=== PATIENT | female | born 1965 | race Caucasian/White ===

== ENCOUNTER → 2016-07-23 | Outpatient (CLI) | payer OTHER ==
[~2016-07-23] MED LIST: MULT-506 PO
--- NOTE | 2016-07-24 14:16 | MAMMOGRAPHY REPORT ---
BILATERAL DIGITAL SCREENING MAMMOGRAM TOMOSYNTHESIS WITH CAD: 07/23/2016 CLINICAL HISTORY: Routine screening. Patient has no complaints. TECHNIQUE: Breast tomosynthesis in addition to standard 2D mammography was performed. Current study was also evaluated with a Computer Aided Detection (CAD) system. COMPARISON: No prior exams were available for comparison. BREAST COMPOSITION: The tissue of both breasts is heterogeneously dense, which may obscure small ma sses. FINDINGS: There are 2 possible faint groups of calcifications in the right upper outer quadrant, fo r which spot magnification views are recommended for further evaluation. The remainder of both breas ts demonstrate no suspicious masses, calcifications, or areas of architectural distortion. Other bi lateral benign-appearing calcifications are noted. IMPRESSION: ACR BI-RADS CATEGORY 0: INCOMPLETE EVALUATION: NEED ADDITIONAL IMAGING EVALUATION Right upper outer quadrant calcifications, for which additional imaging evaluation is recommended gi faye no priors to document stability. The patient will be called to schedule an appointment. Approximately 10% of breast cancers are not detected with mammography. A negative mammographic repor t should not delay biopsy if a clinically suggestive mass is present. Kathy Barros M.D. ah/:07/24/2016 07:59:25 Rn Production: Shakir Watkins RT(R)(M), [facility] letter sent: Addl Imaging 0 BI-RADS Code: ACR BI-RADS Category 0: Incomplete Evaluation: Need Additional Imaging Evaluation
== END | disposition home or self-care (01) ==
LOC: C.MAMM 09:33
PROVIDERS: ATTEND Obstetrics & Gynecology
DX: Z12.31 Encounter for screening mammogram for malignant neoplasm of breast (principal); R92.1 Mammographic calcification found on diagnostic imaging of breast

== ENCOUNTER → 2016-08-04 | Outpatient (CLI) | payer OTHER ==
--- NOTE | 2016-08-04 14:37 | MAMMOGRAPHY REPORT ---
UNILATERAL RIGHT DIGITAL DIAGNOSTIC MAMMOGRAM: 08/04/2016 CLINICAL HISTORY: 51-year-old woman called back from screening mammography for 2 possible clusters o f microcalcifications in the right breast. TECHNIQUE: Spot magnification right CC and ML views were obtained. COMPARISON: Comparison is made to exam dated: 07/23/2016 mammogram - [facility]. BREAST COMPOSITION: The tissue of the right breast is heterogeneously dense, which may obscure smal l masses. FINDINGS: There are 2 small faint clusters of punctate and amorphous microcalcifications in the upp er outer anterior and upper outer middle one third of the right breast. The anterior cluster is the dominant cluster measuring 3 mm, and the cluster in the middle one third of the breast measures 1.2 mm. They are similar in morphology. Given that no prior mammograms are available to demonstrate s tability they are indeterminate and biopsy of the larger 3 mm cluster is recommended, with tentative follow-up of the smaller similar appearing cluster in 6 months, pending benign pathology results. No obvious associated mass or architectural distortion. IMPRESSION: ACR BI-RADS CATEGORY 4B: INTERMEDIATE SUSPICION FOR MALIGNANCY 1. Stereotactic guided right breast biopsy is recommended for a 3 mm cluster of punctate and amorph ous microcalcifications in the upper outer anterior breast. 2. Pending benign pathology results, this similar appearing yet smaller cluster in the upper outer middle one third of the right breast can be followed in short intervals. These results and recommendations were discussed with the patient at the time of the exam. She tent atively scheduled the biopsy prior to leaving our department. Approximately 10% of breast cancers are not detected with mammography. A negative mammographic repor t should not delay biopsy if a clinically suggestive mass is present. Naomie Lehman M.D. ay/:08/04/2016 10:18:44 Yarn Man: Briseyda GUPTA(R)(M), [facility] letter sent: Abnormal 4/5 BI-RADS Code: ACR BI-RADS Category 4B: Intermediate Suspicion For Malignancy
== END | disposition home or self-care (01) ==
LOC: C.MAMM 09:38
PROVIDERS: ATTEND Obstetrics & Gynecology
DX: R92.0 Mammographic microcalcification found on diagnostic imaging of breast (principal)

== ENCOUNTER → 2016-08-20 | Outpatient (CLI) | payer OTHER ==
--- NOTE | 2016-08-20 09:19 | Discharge Instructions ---
Discharge Instructions Procedure Procedure Date: Aug 20, 2016. Reason for visit: Right Calcs. Discharge Discharge Date: Aug 20, 2016. Discharge Diagnosis: status post breast biopsy Instructions Activity Recommendations: Additional Limitations (see below) Return to School/Work: no limitations Recommended Home Diet: No Limitations Provider Instructions: ACTIVITY RECOMMENDATIONS: * No lifting, pushing, pulling or exercising the affected side for three days. RETURN TO SCHOOL/WORK: * You may return to work/school after the procedure, but do not perform any strenuous activities for 24 to 48 hours. MEDICATIONS: * Tylenol (two 325 mg) every four to six hours if needed for mild pain (if not allergic to Tylenol). DIET: * Resume previous diet. SPECIAL CARE INSTRUCTIONS: * Keep biopsy site dry for 24 hours. May shower after 24 hours, but do not soak (bathe) incision. * May remove Tegaderm (plastic patch) tomorrow AFTER showering. * Leave the steri-strips on for one week. Allow the steri-strips to fall off by themselves. If not off after one week, you may remove them. You may place a Bandaid crosswise over the strips, if desired. * Apply ice 10 minutes on and 10 minutes off as needed. * Wear a bra at bedtime to sleep more comfortably for 2-3 days. * Your referring physician should have the results after approximately 5 to 7 business days. * Call for unusual bleeding, fever, drainage, etc or if you have any questions call during normal business hours or after hours call Dr Barros, [phone]. FOLLOW UP VISIT: Follow-up with Referring Physician as scheduled. Allergies Coded Allergies: Phenytoin (Verified Allergy, 08/10/09) Uncoded Allergies: DILANTIN (RASH) (Allergy, Unknown, 08/18/02) N (Allergy, Unknown, 08/18/02) NKFA (Allergy, Unknown, 08/18/02) Maia Parra Recommendations: Call your doctor if: * Temperature above 101 degrees * Pain not relieved by pain medicine ordered * There is increased drainage or redness from any incision * You have any unanswered questions or concerns. Your Doctors Instructions noted above were prepared by provider Kathy Barros. Patient Signature Section: Patient Instructions Signature Page Emperatriz Gonzalez Patient (or Guardian) Signature/Date: I have read and understand the instructions given to me by my caregivers. Caregiver/RN/Doctor Signature/Date: The above-named patient and/or guardian has received patient instructions on this date. + Original Patient Signature Page (only) stays with chart. Please make copy for patient.
--- NOTE | 2016-08-20 12:26 | MAMMOGRAPHY REPORT ---
THIS REPORT HAS BEEN AMENDED. STEREOTACTIC GUIDED BIOPSY RIGHT BREAST: 08/20/2016 CLINICAL HISTORY: Indeterminate calcifications in the right upper outer quadrant. PATIENT CONSENT: The procedure, risks, benefits, and alternatives of stereotactic biopsy with clip p lacement were discussed with the patient, and verbal and written consent was obtained. A timeout wa s performed immediately prior to the procedure. PROCEDURE DESCRIPTION: With stereotactic guidance, aseptic technique, and lidocaine as a local anest hetic (1% lidocaine to anesthetize the skin and 1% lidocaine with epinephrine to anesthetize the yajaira per tissues), the area of concern in the right upper outer quadrant was sampled multiple times with a 9-gauge vacuum-assisted biopsy needle (TNC). The path of approach was lateral. The speci men radiograph demonstrates calcifications to be present in the samples. A metallic marker clip was placed at the biopsy site. This was confirmed on postprocedure mammograms. Direct pressure was ap plied at the biopsy site and hemostasis was readily achieved. The patient tolerated the procedure w ithout complication. She was given wound care instructions. COMPARISON: Comparison is made to exams dated: 08/04/2016 mammogram and 07/23/2016 mammogram - [facility]. IMPRESSION: STEREOTACTIC GUIDED BIOPSY Stereotactic biopsy of indeterminate calcifications in the right upper outer quadrant, with clip aaron cement. The patient will receive pathology results from her referring physician. Pending benign pa thology results, recommend follow-up diagnostic mammograms to reevaluate the other smaller similar-a ppearing cluster in the right breast. Kathy Barros M.D. ah/:08/20/2016 09:22:35 Attending Technologist: Rosamaria GUPTA(R)(M), [facility] Chart Snatcher: Shakir HAYESR)(M), [facility] AMENDMENT: 08/28/2016 Kathy Barros M.D. The pathology results from right breast stereotactic biopsy were reviewed on 08/28/2016. The patholo gy shows fibrocystic change and columnar cell hyperplasia with associated calcifications. Findings are benign and concordant with the imaging appearance. Recommend follow-up diagnostic mammograms of the right breast in 6 months to reevaluate the other similar appearing cluster of calcifications in the right breast.
--- NOTE | 2016-08-20 12:26 | MAMMOGRAPHY REPORT ---
UNILATERAL RIGHT DIGITAL DIAGNOSTIC MAMMOGRAM: 08/20/2016 CLINICAL HISTORY: Status post stereotactic biopsy of right breast calcifications. TECHNIQUE: Postprocedural right CC and LM views were obtained. COMPARISON: Comparison is made to exams dated: 08/04/2016 mammogram and 07/23/2016 mammogram - [facility]. BREAST COMPOSITION: The tissue of the right breast is heterogeneously dense, which may obscure smal l masses. FINDINGS: A new biopsy marker clip is seen at the site of the biopsied calcifications in the right breast. No significant postbiopsy hematoma is seen. IMPRESSION: POST PROCEDURE IMAGING FOR MARKER PLACEMENT New biopsy marker clip status post stereotactic biopsy of right breast calcifications. Pathology re sults are pending. Pending benign pathology results, recommend follow-up diagnostic mammograms to e valuate the other smaller similar-appearing cluster of calcifications in the right breast. Approximately 10% of breast cancers are not detected with mammography. A negative mammographic repor t should not delay biopsy if a clinically suggestive mass is present. Kathy Barros M.D. ah/:08/20/2016 09:40:57 Equipment Mechanic Specialist: Shakir GUPTA(R)(M), [facility] BI-RADS Code: Post Procedure Imaging For Marker Placement
== END | disposition home or self-care (01) ==
LOC: C.MAMM 08:40
PROVIDERS: ATTEND Obstetrics & Gynecology
DX: R92.0 Mammographic microcalcification found on diagnostic imaging of breast (principal); R92.1 Mammographic calcification found on diagnostic imaging of breast; N62 Hypertrophy of breast

== ENCOUNTER → 2016-09-09 | Outpatient (CLI) | payer OTHER | END | disposition home or self-care (01) | LOC: C.PAPS 15:01 | PROVIDERS: ATTEND Obstetrics & Gynecology | DX: R87.612 Low grade squamous intraepithelial lesion on cytologic smear of cervix (LGSIL) (principal) ==

== ENCOUNTER → 2016-11-04 | Outpatient (CLI) | payer OTHER | END | disposition home or self-care (01) | LOC: C.PAPS 16:10 | PROVIDERS: ATTEND Obstetrics & Gynecology | DX: R87.612 Low grade squamous intraepithelial lesion on cytologic smear of cervix (LGSIL) (principal) ==

== ENCOUNTER → 2016-12-18 | Day surgery (SDC) | payer OTHER ==
[2016-12-10 09:16] VITALS: Ht 162.6 cm; Wt 69.1 kg
--- NOTE | 2016-12-16 09:58 | HISTORY & PHYSICAL EXAMINATION ---
DATE OF ADMISSION: 12/18/2016 CHIEF COMPLAINT: Persistent abnormal Pap smears and fibroid uterus. HISTORY OF PRESENT ILLNESS: The patient is a 51-year-old 1, para 1, general health is good. She is on no chronic pills or medications. Her periods stopped in April 2016, has not had any bleeding since. She had her first abnormal Pap smear in 2015, it was a low grade. It was followed up by colposcopically directed biopsy which showed an area of low grade dysplasia which could account for the Pap smear; however follow up Pap smears after this and after she had her cervix frozen continued to be abnormal. They are continuing to be read as low grade Pap smears. She is presently being scheduled for an outpatient D&C conization. She also had an ultrasound in 2016, which showed a fibroid 7.1 x 7.0 x 6.5 cm in dimension. PAST MEDICAL HISTORY: She has a son age 18 in good health. No history of rheumatic fever, heart disease. She is on no blood pressure medications. ALLERGIES: SHE IS ALLERGIC TO DILANTIN. PAST SURGICAL HISTORY: She has had no previous surgery. SOCIAL HISTORY: No smoking. No alcohol intake. Works at [employer]. FAMILY HISTORY: Mom 70, had breast cancer diagnosed at 68. Father 75 in good health. One sister in good health. REVIEW OF SYSTEMS: HEAD: No symptoms of frequent or severe headaches. EYES: No symptoms of blurred vision, double vision. EARS: No symptoms of frequent ear infections, difficulty hearing. NOSE: No symptoms of frequent nosebleeds, difficulty breathing through her nose. THROAT: No symptoms of frequent or severe sore throat, difficulty swallowing. RESPIRATORY SYSTEM: No history of asthma, chest pain, shortness of breath. PHYSICAL EXAMINATION: GENERAL: Well-developed, well-nourished 51-year-old white female, alert, oriented x3 and cooperative in no acute distress, appears stated age. EYES: Conjunctivae are pink, sclerae white, no evidence of jaundice. EARS: Had normal light reflex bilaterally. NOSE: Had normal mucosa. Septum is midline. There were no polyps. THROAT: No erythema or evidence of infection. Teeth are in good state of repair. HEAD: Was normocephalic, normal distribution of hair. NECK: Supple. Trachea midline. Thyroid is not enlarged. There is no adenopathy appreciated. Both carotids are of good intensity. CHEST: Clear to auscultation and percussion. No wheezes, rales or rhonchi appreciated. HEART: Had regular rhythm. S1 and S2 are normal. BREAST EXAMINATION: Normal. ABDOMEN: Soft and nontender. PELVIC EXAMINATION: Revealed a normal appearing cervix. Bimanual exam revealed the uterus to be 10-11 weeks size. There were no adnexal masses appreciated. MUSCULOSKELETAL EXAMINATION: Revealed no calf tenderness. IMPRESSIONS OF THIS CASE: Fibroid uterus, persistent abnormal Pap smears, failed colposcopy with cryosurgery.
[2016-12-16 12:29] LABS: BASO % 0.4 %; BASO ABS # 0.02 K/uL (0-0.2); COMPLETE YES; HEMATOCRIT 39.5 % (37-47); IG% 0.2 %; LYMPH % 40.8 %; LYMPH ABS # 2.03 K/uL (1.2-3.4); MEAN CORPUSCULAR HEMOGLOBIN 30.6 pg (25-34); MEAN CORPUSCULAR HGB CONC 33.7 g/dl (32-36); MEAN PLATELET VOLUME 9.1 fL (7.4-10.4); MONO % 10.9 %; NEUT % 47.7 %; PLATELET COUNT 286 K/uL (130-400); RED BLOOD COUNT 4.34 M/uL (4.2-5.4); WHITE BLOOD COUNT 4.97 K/uL (4.8-10.8)
[2016-12-16 12:46] LABS: PREG INTERNAL NEGATIVE QC NEG CLEAR BACKGROUND; PREG INTERNAL POSITIVE QC POS CONTROL LINE
[~2016-12-18] VITALS: Ht 162.6 cm; Wt 69.1 kg
[~2016-12-18] MED LIST changes: +ATROPINE SULFATE 0.1 MG/ML 5ML SYR IV PRN; +DEXAMETHASONE SOD INJ 4 MG/ML VIAL ONE; +EpHEDrine SULFATE INJ 50 MG/ML AMP IV PRN; +FENTANYL CITRATE INJ 50 MCG/1 ML 2 ML VIAL IV PRN; +FENTANYL CITRATE INJ 50 MCG/1 ML 2 ML VIAL ONE; +HYDROCODONE/ACETAMOPHEN 5/325MG TAB PO PRN; +IBUPROFEN 600 MG TAB PO PRN; +IODINE SOLN STRONG 14 ML ONE; +KETOROLAC TROMETHAMINE 30 MG/ML VIAL IV. PRN; +LACTATED RINGER'S 1000ML 1,000 ML IV SCH; +LIDOCAINE HCL 2% 2 ML VIAL (20MG/ML) ONE; +LIDOCAINE/EPINEPHRINE 1% INJ 50 ML VIAL ONE; +MIDAZOLAM HCL 1 MG/ML 2ML VIAL ONE; +NURSING VERBAL MED ORDER ONE; +ONDANSETRON INJ 2 MG/ML 2 ML VIAL IV PRN; +ONDANSETRON INJ 2 MG/ML 2 ML VIAL ONE; +OXYCODONE/ACETAMINOPHEN 5-325 TAB PO PRN; +PROPOFOL IV EMULSION 10 MG/ML 20 ML VIAL IV ONE; +SODIUM CHLORIDE 0.9% 1000ML 1,000 ML IV SCH
--- NOTE | 2016-12-18 13:38 | History & Physical Bridge Note ---
H&P Re-Evaluation Bridge Note: I have examined the patient, reviewed the History & Physical and in the interval since the performance of the History & Physical I have noted the following changes of clinical significance: No changes noted
--- NOTE | 2016-12-18 14:33 | [facility] Post Operative Brief Note ---
Immediate Operative Summary Operative Date Dec 18, 2016. Pre-Operative Diagnosis Persistent Abnormal Pap Post-Operative Diagnosis Same Procedure(s) Performed Dilitation And Curettage, Conization Surgeon Dr Crowell Caramel Maker Surgeon(s) None Estimated Blood Loss 20ml Findings UTERUS SOUNDED TO 10.5 CM UTERUS 10 TO 11 WEEKS SIZE Specimens A: Endometrial Currettings B: Cone Biopsy (Tag @ 12) Complication(s) None Disposition Recovery Room / PACU
--- NOTE | 2016-12-18 14:35 | Discharge Instructions-SurgCtr ---
Discharge Instructions Date of Service Dec 18, 2016. Visit Reason for Visit: Persistent Abnormal Pap (Lgsil) Discharge Discharge Diagnosis / Problem: PERSISTANT ABNORMAL PAP SMEARS Discharge Goals Goal(s): Learn about illness Activity Recommendations Activity Limitations: as noted below ACTIVITY RECOMMENDATIONS: * Avoid tampons, douching, hot tubs, pools, and intercourse until bleeding has stopped. * May shower as usual. * No strenuous activity for 24-48 hours. After 24-48 hours, you may do anything you feel like doing (driving and sports are okay). SPECIAL CARE INSTRUCTIONS: Special Diet: * Mild nausea may occur in the immediate post-operative period. * Take clear liquids such as tea, cola or bouillon until all nausea has subsided; you may then resume your normal diet. Special Care: * Light bleeding and vaginal spotting can last from a few days to 3-4 weeks. Call your doctor if bleeding becomes heavier than the heaviest part of your period. * Check your temperature twice a day for one week. If it goes above 100.4 degrees Fahrenheit (38.0 Celsius), notify your doctor. * Call your doctor's office for an appointment for 6 weeks after your surgery. FOLLOW-UP VISIT: Call your doctor's office for an appointment for 6 weeks after your surgery. Anesthesia . Post Anesthesia Instructions: If you have had General Anesthesia or IV Sedation: * Do not drive today. * Resume driving when surgeon permits. * Do not make important decisions or sign legal documents today. * Call surgeon for: 1. Temperature elevations greater than 101 degrees F. 2. Uncontrollable pain. 3. Excessive bleeding. 4. Persistent nausea and vomiting. 5. Medication intolerance (nausea, vomiting or rash). * For nausea and vomiting use only clear liquids such as: tea, soda, bouillon until nausea subsides, then gradually increase diet as tolerated. * If you have any concerns or questions, call your surgeon's office. If physician is unavailable and it is an emergency, call 911 or go to the nearest emergency room. . Diet Recommendations Home Diet: resume previous diet Procedures Procedures Performed: Dilitation And Curettage, Conization Pending Studies Studies pending at discharge: no Medical Emergencies . Who to Call and When: Medical Emergencies: If at any time you feel your situation is an emergency, please call 911 immediately. . Non-Emergent Contact Non-Emergency issues call your: Stonecutter Assistant Call Non-Emergent contact if: temperature is above 100.5 . . "Provider Documentation" section prepared by Siddhartha Crowell. .
[2016-12-18 15:17] VITALS: TEMP 36.6
[2016-12-18 15:42] VITALS: BP 123/72; PULSE 66; O2SAT 100
--- NOTE | 2016-12-18 15:48 | Anesthesia Progress Nt - [facility] ---
Anesthesia Post Op Note Date & Time Dec 18, 2016 at 15:48 Vital Signs Pain Intensity: 0 Vital Signs Past 12 Hours Date Time Temp Pulse Resp B/P (MAP) Pulse Ox O2 Delivery O2 Flow Rate FiO2 12/18/16 15:42 66 16 123/72 (89) 100 Room Air 12/18/16 15:17 36.6 67 16 117/82 (94) 100 Room Air 12/18/16 15:09 65 13 98 12/18/16 15:09 63 13 12/18/16 15:06 36.7 74 13 117/86 98 Room Air 12/18/16 15:06 117/86 12/18/16 15:04 64 12 12/18/16 15:04 63 12 95 12/18/16 15:01 120/84 12/18/16 14:59 74 17 99 12/18/16 14:59 74 17 12/18/16 14:57 122/87 12/18/16 14:54 67 12 98 12/18/16 14:54 67 12 12/18/16 14:51 120/86 12/18/16 14:49 73 20 12/18/16 14:49 77 20 99 12/18/16 14:46 126/86 12/18/16 14:44 68 15 100 12/18/16 14:44 67 15 12/18/16 14:41 119/90 12/18/16 14:39 67 15 100 12/18/16 14:39 67 15 12/18/16 14:38 70 16 12/18/16 14:38 71 16 100 12/18/16 14:36 104/84 12/18/16 14:33 69 13 12/18/16 14:33 69 13 100 12/18/16 14:31 108/86 12/18/16 14:30 116/85 12/18/16 14:28 36.1 74 12 116/85 99 Mask 5 12/18/16 12:11 36.9 77 16 133/92 (106) 100 Room Air Notes Mental Status: alert / awake / arousable, participated in evaluation Pt Amnestic to Procedure: Yes Nausea / Vomiting: adequately controlled Pain: adequately controlled Airway Patency, RR, SpO2: stable & adequate BP & HR: stable & adequate Hydration State: stable & adequate Anesthetic Complications: no major complications apparent
--- NOTE | 2016-12-18 16:32 | OPERATIVE REPORT ---
DATE OF OPERATION: 12/18/2016 PROCEDURE: D&C conization. INDICATIONS FOR SURGERY: Uterine fibroids and persistent abnormal Pap smears, failed colposcopy. SURGEON: Dr. Crowell. ESTIMATED BLOOD LOSS: 20 mL. ANESTHESIA: General. OPERATIVE FINDINGS AND PROCEDURE: The patient was brought to the OR table, correctly identified by armband and conversation. Perineum and vagina were painted with Betadine paint, draped in the usual sterile fashion. Catheter was used to empty the bladder. Pelvic exam revealed a 10-11 weeks' gestational size uterus. There were no adnexal masses appreciated. Weighted speculum was placed in the posterior vagina. Anterior lip of the cervix grasped with a single-tooth tenaculum. Uterus was sounded to 10.5 cm. Cervix was dilated with graduated dilators, serrated curette was placed in the uterine cavity, all 4 quadrants of the uterus were thoroughly and systematically cureted. This was productive of a moderate amount of grossly normal-appearing tissue. Following thorough curettage, Vicryl sutures were placed at 3 and 9 o'clock on the cervix for hemostatic and traction purposes. The cervix was infiltrated with local with epinephrine. Then I did a high cone biopsy after painting the cervix with Lugol solution. I started at 6 o'clock and did a continuous cut in a 360 degree fashion. I then cut the cone free, put a tag at 12 o'clock and then did 4 Sturmdorf sutures of Vicryl at 3, 6, 9 and 12 o'clock. I then packed off the endocervical canal with Surgicel and hemostasis was good. The patient tolerated the procedure well and left the OR in good condition. I attest to the content of the Intraoperative Record and any orders documented therein. Any exceptions are noted below. [facility]
== END | disposition home or self-care (01) ==
LOC: X.SURG 11:58
PROVIDERS: ATTEND Obstetrics & Gynecology
DX: N87.0 Mild cervical dysplasia (principal); D25.9 Leiomyoma of uterus, unspecified